=== PATIENT | female | born 1985 | race Two or more races ===

== ENCOUNTER 2020-08-06 03:47 | Emergency (ER) | payer SELFPAY ==
[2020-08-06 04:31] VITALS: BP 138/97; PULSE 68; TEMP 98.6; BMI 27.0
[2020-08-06] MEDS ORDERED: ACETAMINOPHEN 325 MG TABLET (FP) PO ONE (04:41)
[2020-08-06] MEDS ORDERED: predniSONE 20 MG TABLET (UD) PO ONE (04:41)
[2020-08-06] MEDS ORDERED: predniSONE 20 MG TABLET (UD) ONE ×2 (04:48→04:57)
[2020-08-06] MEDS ORDERED: ACETAMINOPHEN 325 MG TABLET (FP) ONE ×2 (04:49→04:58)
[2020-08-06] MEDS ORDERED: KETOROLAC TROMETHAMINE 60 MG/2 ML VIAL IM ONE (05:42)
[2020-08-06] MEDS ORDERED: KETOROLAC TROMETHAMINE 60 MG/2 ML VIAL ONE (05:46)
== END 2020-08-06 07:11 | disposition home or self-care (01) ==
LOC: JER 03:47
PROC: 3E0233Z Introduction of Anti-inflammatory into Muscle, Percutaneous Approach (ICD-10-PCS; principal; 2020-08-06)
DX: M54.12 Radiculopathy, cervical region (principal); M62.838 Other muscle spasm
CPT/HCPCS: 72125-TC; 84703; 99284-25